=== PATIENT | female | born 1960 | race Caucasian/White ===

== ENCOUNTER 2020-08-02 19:18 | Emergency (ER) | payer BC ==
[~2020-08-02] VITALS: Ht 154.9 cm; Wt 94.1 kg
[2020-08-02] MEDS ORDERED: METOPROLOL TARTRATE 50 MG TAB PO ONE (20:00)
[2020-08-02] MEDS ORDERED: METOPROLOL TARTRATE 50 MG TAB ONE (20:10)
[2020-08-02 20:38] LABS: BASOPHILS % (AUTO) 1 % (0-1); EOSINOPHILS % (AUTO) 3 % (1-7); LYMPHOCYTES % (AUTO) 30 % (22-44); MEAN CORPUSCULAR HEMOGLOBIN 29.9 pg (27.0-34.8); MEAN CORPUSCULAR HGB CONC 34.3 g/dL (32.4-35.8); MEAN PLATELET VOLUME 7.3 fL (7.4-10.4); MONOCYTES % (AUTO) 10 % (2-9); NEUTROPHILS % (AUTO) 56 % (42-75); PLATELET COUNT 301 x10^3/uL (130-400); RED BLOOD COUNT 5.12 x10^6/uL (3.82-5.3); RED CELL DISTRIBUTION WIDTH 13.8 % (9.6-15.2)
[2020-08-02 20:48] LABS: ALANINE AMINOTRANSFERASE 55 U/L (12-78); ALBUMIN 3.5 g/dL (3.4-5.0); ANION GAP 10 mmol/L (5-15); CALCIUM 9.1 mg/dL (8.5-10.1); CHLORIDE 107 mmol/L (98-107); CREATININE 1.07 mg/dL (0.55-1.02)
[2020-08-02 20:50] LABS: MD NO
[2020-08-02 20:52] LABS: ALKALINE PHOSPHATASE 81 U/L (45-117); BILIRUBIN,TOTAL 0.5 mg/dL (0.2-1.0); TOTAL PROTEIN 8.3 g/dL (6.4-8.2); TROPONIN I < 0.015 ng/mL (0.000-0.045)
--- NOTE | 2020-08-02 21:38 | NUR ---
PT TO IMAGING
--- NOTE | 2020-08-02 21:57 | NUR ---
PT BACK FROM IMAGING
[2020-08-02 22:30] VITALS: BP 159/89
--- NOTE | 2020-08-02 22:51 | NUR ---
f/u and d/c instructions given to pt and she v/u. piv d/c'd without incident, and catheter intact. Pt ambulatory and d/c'd without incident.
[2020-08-02] MEDS ORDERED: OMNIPAQUE 350 MG/ML, 100ML BOTTLE ONE (23:29)
== END 2020-08-02 22:53 | disposition home or self-care (01) ==
LOC: ED 21:32
DX: R07.89 Other chest pain (principal); I10 Essential (primary) hypertension
CPT/HCPCS: 36415; 71045; 71275; 80053; 84484; 85025; 85379; 93005; 99285; Q9967